=== PATIENT | male | born 1990 | race African-American/Black ===

== ENCOUNTER 2018-02-10 13:32 | Emergency (ER) | payer MEDICAID ==
[2018-02-10 13:39] VITALS: BP 122/69
[2018-02-10] MEDS ORDERED: LET GEL TOPICAL 1 EA SYR TP ONE ×2 (13:44→13:45)
--- NOTE | 2018-02-10 13:48 | EDPHY ---
H & P Time Seen by Provider: 02/10/18 13:41 HPI/ROS: CHIEF COMPLAINT: Right arm laceration HISTORY OF PRESENT ILLNESS: Happened 30 min ago when his girlfriend closed and he put his arm to stop it and went right through pane of glass on the door lacerating his right arm. No foreign body sensation. No weakness or numbness in the right hand. REVIEW OF SYSTEMS: As above PAST MEDICAL HISTORY: Negative, tetanus up-to-date General Appearance: Alert and conversant, cooperative. Normal right radial pulse and normal motor sensory and flexor and extensor tendon function in the right hand. Patient has superficial right forearm volar laceration 5cm Emergency Department course/MDM: Patient is adamant that he not get stitches or linwood. Warned that he may have increased bleeding and larger scar. Will accept topical anesthetic and Steri-Strips. Standard wound care performed, Steri-Strips to close the wound. Does not have evidence of deep structure involvement. Smoking Status: Light smoker Constitutional: Initial Vital Signs Temperature (C) 36.8 C 02/10/18 13:37 Heart Rate 69 02/10/18 13:37 Respiratory Rate 18 02/10/18 13:37 Blood Pressure 122/69 H 02/10/18 13:37 O2 Sat (%) 99 02/10/18 13:37 O2 Delivery Mode Room Air Allergies/Adverse Reactions: No Known Allergies Allergy (Unverified 02/10/18 13:39) Home Medications: Medication Instructions Recorded NK [No Known Home Meds] 02/10/18 MDM/Departure - MDM Medications Given: Discontinued Medications Tetracaine/Epinephrine/Lidocaine (Let Gel Topical) 1 ea TP EDNOW ONE Stop: 02/10/18 13:46 Last Admin: 02/10/18 13:47 Dose: 1 ea - Depart Disposition: Home, Routine, Self-Care Clinical Impression: Laceration of right forearm Qualifiers: Encounter type: initial encounter Qualified Code(s): S51.811A - Laceration without foreign body of right forearm, initial encounter Condition: Good Instructions: Care For Your Stitches (DC) Additional Instructions: Leave Steri-Strips on until they fall off. Referrals: Scott Granado MD [Medical Doctor] - As per Instructions
== END 2018-02-10 14:20 | disposition home or self-care (01) ==
DX: S51.811A Laceration without foreign body of right forearm, initial encounter (principal); F17.200 Nicotine dependence, unspecified, uncomplicated; W25.XXXA Contact with sharp glass, initial encounter; Y99.8 Other external cause status; Y93.89 Activity, other specified

== ENCOUNTER 2018-02-19 10:58 | Emergency (ER) | payer MEDICAID ==
--- NOTE | 2018-02-19 11:14 | EDPHY ---
H & P Smoking Status: Light smoker Time Seen by Provider: 02/19/18 11:08 HPI/ROS: CHIEF COMPLAINT: "I think my wound might be infected" HISTORY OF PRESENT ILLNESS: 27-year-old immunocompetent male seen in the emergency department 9 days ago for right volar forearm laceration after arm went through a glass pain comp. He declined wound closure at that time beyond Steri-Strips. He is in the ER concerned may be infected feels is erythematous. No lymphangitic streaking. No fever or chills. No nausea or vomiting. PHYSICAL EXAM (Prior to examination, patient consented to physical exam, hands were washed and my usual and customary physical exam procedures followed) 1) GENERAL: Well-developed, well-nourished, alert and oriented. Appears to be in no acute distress. 2) HEAD: Normocephalic 3) HEENT: sclera anicteric 4) LUNGS: Breathing comfortably. 5) SKIN: Right volar forearm Steri-Strips in place but peeling off with a noted mid laceration area of dehiscence with Steri-Strips in place. Steri- Strips removed. No further dehiscence. No fetid odor. No erythema. No tenderness to palpation. 6) MUSCULOSKELETAL: Soft compartments. No lymphangitic streaking. No adenopathy (Gale Ferguson) Constitutional: Initial Vital Signs Temperature (C) 37.2 C 02/19/18 11:01 Heart Rate 96 02/19/18 11:01 Respiratory Rate 16 02/19/18 11:01 Blood Pressure 121/77 H 02/19/18 11:01 O2 Sat (%) 96 02/19/18 11:01 O2 Delivery Mode Room Air Allergies/Adverse Reactions: No Known Allergies Allergy (Unverified 02/10/18 13:39) Home Medications: Medication Instructions Recorded NK [No Known Home Meds] 02/10/18 MDM/Departure - MDM Imaging Results: Imaging Impressions Forearm X-Ray 02/19/18 11:11 Impression: Negative right forearm radiographs. Images reviewed by myself (Gale Ferguson) ED Course/Re-evaluation: X-ray was performed showing no radiopaque foreign body. I do not think this wound is infected as he has no clinical signs of infection. I do not think that antibiotics are indicated at this time. I have redressed the wound provided usual customary wound precautions instructions. Care of patient under supervision of secondary supervising physician Dr Kline . (Gale Ferguson) - Depart Disposition: Home, Routine, Self-Care Clinical Impression: Laceration of right forearm Qualifiers: Encounter type: subsequent encounter Qualified Code(s): S51.811D - Laceration without foreign body of right forearm, subsequent encounter Condition: Good Instructions: Laceration (ED) Additional Instructions: Return to the ER if you develop redness, swelling, discharge, warmth to the wound, red streaks going up your arm or any other symptoms that concern you. Referrals: [facility],. [Clinic] - 2-3 days, call for appt.
[2018-02-19 11:50] VITALS: BP 110/69
== END 2018-02-19 11:50 | disposition home or self-care (01) ==
DX: S51.811D Laceration without foreign body of right forearm, subsequent encounter (principal); F17.200 Nicotine dependence, unspecified, uncomplicated; X58.XXXD Exposure to other specified factors, subsequent encounter